=== PATIENT | female | born 1975 | race African-American/Black ===

== ENCOUNTER 2018-06-02 10:48 | Emergency (ER) | payer OTHER, SELFPAY ==
[~2018-06-02] VITALS: Ht 157.5 cm; Wt 86.2 kg
[~2018-06-02 10:48] MED LIST: ACYCLOVIR400 MG ORAL; NKM; ZEGERID 20 MG1 EACH PO
[2018-06-02] MEDS ORDERED: NKM (11:01)
[2018-06-02 11:05] VITALS: BP 119/78
[2018-06-02 12:03] LABS: BASOPHILS % (AUTO) 0.9 % (0.0-2.0); EOSINOPHILS % (AUTO) 4.8 % (0.0-3.0); HEMATOCRIT 30.1 % (37.0-47.0); HEMOGLOBIN 9.8 G/DL (12.0-16.0); LYMPHOCYTES % (AUTO) 38.1 % (20.0-45.0); MEAN CORPUSCULAR VOLUME 83 FL (80-99); MONOCYTES % (AUTO) 9.7 % (1.0-10.0); NEUTROPHILS % (AUTO) 46.6 % (45.0-75.0); PLATELET COUNT 423 K/UL (150-450); RED BLOOD COUNT 3.63 M/UL (4.20-5.40); RED CELL DISTRIBUTION WIDTH 12.6 % (11.6-14.8); WHITE BLOOD COUNT 4.6 K/UL (4.8-10.8)
[2018-06-02 12:08] LABS: APPEARANCE,URINE CLEAR; BILIRUBIN, URINE NEGATIVE (NEGATIVE); COLOR,URINE PALE YELLOW; GLUCOSE, URINE (UA) NEGATIVE (NEGATIVE); KETONES,URINE NEGATIVE (NEGATIVE); LEUKOCYTE ESTERASE ,URINE NEGATIVE (NEGATIVE); NITRITE,URINE NEGATIVE (NEGATIVE); PH,URINE 7 (4.5-8.0); PROTEIN,URINE NEGATIVE (NEGATIVE); UROBILINOGEN,URINE NORMAL MG/DL (0.0-1.0)
[2018-06-02 12:13] LABS: ANION GAP 10 mmol/L (5-15); BLOOD UREA NITROGEN 8 mg/dL (7-18); CARBON DIOXIDE 26 MMOL/L (21-32); CHLORIDE 102 MMOL/L (98-107); POTASSIUM 3.7 MMOL/L (3.5-5.1); SODIUM 138 MMOL/L (136-145)
[2018-06-02 12:18] LABS: ALANINE AMINOTRANSFERASE 27 U/L (12-78); ALBUMIN 3.1 G/DL (3.4-5.0); ALBUMIN/GLOBULIN RATIO 0.7 (1.0-2.7); ALKALINE PHOSPHATASE 67 U/L (46-116); ASPARTATE AMINO TRANSFERASE 20 U/L (15-37); BILIRUBIN,TOTAL 0.3 MG/DL (0.2-1.0)
--- NOTE | 2018-06-02 12:25 | Emergency Room Report ---
History of Present Illness General Chief Complaint: Generalized Weakness Source: Patient Present Illness HPI 33-year-old female presents to the emergency department requesting removal of sutures from her liposuction and tummy-tuck surgery that was performed in [place]. Patient states that she does not want to travel back to [place] to have them removed and she also is afraid to go to her own hospital which is [facility] because she states that she was not supposed to have surgery performed out of the country. Patient denies fevers or chills she reports 3 out of 10 in severity pain only when clothing rubs against the sutures. Patient denies pain at this time she does report generalized weakness 2 weeks. Patient states that the surgery was performed on April 26 and sutures have been in for a little over a month. Patient denies erythema, discharge, bleeding, dehiscence of wounds, constipation, abdominal pain, nausea or vomiting. Patient denies past medical history. Allergies: Coded Allergies: No Known Allergies (Unverified , 06/30/12) Patient History Past Medical History: see triage record Past Surgical History: unable to obtain Last Menstrual Period: 2 weeks ago Now: No Reviewed Nursing Documentation: PMH: Agreed; PSxH: Agreed Review of Systems All Other Systems: negative except mentioned in HPI Physical Exam Vital Signs Date Time Temp Pulse Resp B/P (MAP) Pulse Ox O2 Delivery O2 Flow Rate FiO2 06/02/18 10:54 98.1 21 119/78 100 06/02/18 11:05 86 Sp02 EP Interpretation: reviewed, normal General Appearance: no apparent distress, alert, GCS 15, non-toxic Head: normocephalic, atraumatic Eyes: bilateral eye normal inspection, bilateral eye PERRL ENT: hearing grossly normal, normal voice Neck: full range of motion Respiratory: lungs clear, normal breath sounds, speaking full sentences Cardiovascular #1: regular rate, rhythm Gastrointestinal: normal bowel sounds, non tender, soft, other - Large surgical scar across the lower abdomen with buried crusted over sutures, no erythema or tenderness. Also sutures and crusting along the umbilicus . There are also several other smaller surgical incisions that have sutures as well. No bleeding or discharge Rectal: deferred Genitourinary: normal inspection Musculoskeletal: back normal, gait/station normal, normal range of motion, non- tender Neurologic: alert, oriented x3, responsive, motor strength/tone normal, sensory intact, speech normal, grossly normal Psychiatric: judgement/insight normal Skin: normal color, no rash, warm/dry, well hydrated, wd healing/no infection noted - Large complicated surgical scar across the lower abdomen with buried crusted over sutures, no erythema or tenderness. Also sutures and crusting along the umbilicus . There are also several other smaller surgical incisions that have sutures as well. No bleeding or discharge Lymphatic: no adenopathy Medical Decision Making PA Attestation Dr. Mary is my supervising Physician whom patient management has been discussed with. Diagnostic Impression: Primary Impression: Problem involving surgical incision Additional Impression: Incisional irritation Qualified Codes: T81.89XA - Other complications of procedures, not elsewhere classified, initial encounter ER Course 33-year-old female presents to the emergency department requesting removal of sutures from her liposuction and tummy-tuck surgery that was performed in [place]. Patient states that she does not want to travel back to [place] to have them removed and she also is afraid to go to her own hospital which is [facility] because she states that she was not supposed to have surgery performed out of the country. Patient denies fevers or chills she reports 3 out of 10 in severity pain only when clothing rubs against the sutures. Patient denies pain at this time she does report generalized weakness 2 weeks. Patient states that the surgery was performed on April 26 and sutures have been in for a little over a month. Patient denies erythema, discharge, bleeding, dehiscence of wounds, constipation, abdominal pain, nausea or vomiting. Patient denies past medical history. Ddx considered but are not limited to laceration, adhesions, cellulitis, dehiscence, SBO, acute abdomen, sepsis just to name a few. Vital signs: are WNL, pt. is afebrile H&PE are most consistent with: ORDERS: -Basic labs: Pancytopenia. Hcg: Negative ED INTERVENTIONS: - No obvious surgical site infection. many of the sutures are buried under the skin. Due to the extensive amount of time this would take and pt. not having an acute emergent condition at this time Pt. is being referred to outpatient surgery for suture removal and continued follow appointments as needed. This is being facilitated with [facility] and ED Charge nurse. DISCHARGE: At this time pt. is stable for d/c to home. Will provide printed patient care instructions, and any necessary prescriptions. Care plan and follow up instructions have been discussed with the patient prior to discharge. Labs Test 06/02/18 11:25 White Blood Count 4.6 K/UL (4.8-10.8) Red Blood Count 3.63 M/UL (4.20-5.40) Hemoglobin 9.8 G/DL (12.0-16.0) Hematocrit 30.1 % (37.0-47.0) Mean Corpuscular Volume 83 FL (80-99) Mean Corpuscular Hemoglobin 27.2 PG (27.0-31.0) Mean Corpuscular Hemoglobin Concent 32.8 G/DL (32.0-36.0) Red Cell Distribution Width 12.6 % (11.6-14.8) Platelet Count 423 K/UL (150-450) Mean Platelet Volume 5.2 FL (6.5-10.1) Neutrophils (%) (Auto) 46.6 % (45.0-75.0) Lymphocytes (%) (Auto) 38.1 % (20.0-45.0) Monocytes (%) (Auto) 9.7 % (1.0-10.0) Eosinophils (%) (Auto) 4.8 % (0.0-3.0) Basophils (%) (Auto) 0.9 % (0.0-2.0) Urine Color Pale yellow Urine Appearance Clear Urine pH 7 (4.5-8.0) Urine Specific [place] 1.010 (1.005-1.035) Urine Protein Negative (NEGATIVE) Urine Glucose (UA) Negative (NEGATIVE) Urine Ketones Negative (NEGATIVE) Urine Blood Negative (NEGATIVE) Urine Nitrite Negative (NEGATIVE) Urine Bilirubin Negative (NEGATIVE) Urine Urobilinogen Normal MG/DL (0.0-1.0) Urine Leukocyte Esterase Negative (NEGATIVE) Urine HCG, Qualitative Negative (NEGATIVE) Sodium Level 138 MMOL/L (136-145) Potassium Level 3.7 MMOL/L (3.5-5.1) Chloride Level 102 MMOL/L (98-107) Carbon Dioxide Level 26 MMOL/L (21-32) Anion Gap 10 mmol/L (5-15) Blood Urea Nitrogen 8 mg/dL (7-18) Creatinine 1.0 MG/DL (0.55-1.30) Estimat Glomerular Filtration Rate > 60 mL/min (>60) Glucose Level 96 MG/DL (74-106) Calcium Level 9.0 MG/DL (8.5-10.1) Total Bilirubin 0.3 MG/DL (0.2-1.0) Aspartate Amino Transf (AST/SGOT) 20 U/L (15-37) Alanine Aminotransferase (ALT/SGPT) 27 U/L (12-78) Alkaline Phosphatase 67 U/L (46-116) Total Protein 7.7 G/DL (6.4-8.2) Albumin 3.1 G/DL (3.4-5.0) Globulin 4.6 g/dL Albumin/Globulin Ratio 0.7 (1.0-2.7) Last Vital Signs Date Time Temp Pulse Resp B/P (MAP) Pulse Ox O2 Delivery O2 Flow Rate FiO2 06/02/18 11:05 98.1 85 21 119/78 100 Disposition: HOME, SELF-CARE Condition: Stable Scripts Bacitracin/Polymyxin B Sulfate (BACITRACIN-POLYMYXIN OINTMENT) 28.35 Gm Oint...g. 1 APPLIC TP BID, #28.3 GM Prov: Dianne Cain 06/02/18 Referrals: [facility] (PCP) Patient Instructions: Suture Removal, Care After, Weakness, [id number] Additional Instructions: Take medications as directed. Follow up with a Primary Care Provider in 3-5 days, even if your symptoms have resolved. Return sooner to ED if new symptoms occur, or current symptoms become worse. - Please note that this Emergency Department Report was dictated using [employer] technology software, occasionally this can lead to erroneous entry secondary to interpretation by the dictation equipment. Dianne Cain Jun 02, 2018 12:25
[2018-06-02] MEDS ORDERED: BACITRACIN-P28.35 GM TP (13:09)
[2018-06-02 13:23] VITALS: BP 119/78
== END 2018-06-02 13:15 | disposition home or self-care (01) ==
LOC: EMR 12:03
DX: T81.89XA Other complications of procedures, not elsewhere classified, initial encounter (principal); R53.1 Weakness
CPT/HCPCS: 36415; 80053; 81003; 81025; 85025; 99284